=== PATIENT | female | born 1990 | race Hispanic/Latino ===

== ENCOUNTER 2017-05-08 13:02 | Emergency (ER) | payer OTHER ==
[2017-05-08 13:15] VITALS: RESP 16
[2017-05-08] MEDS ORDERED: Rabies Immune Globulin 150 INTLU/ML VIAL IM ONE (13:26)
[2017-05-08] MEDS ORDERED: RABIES VACCINE 2.5 U PDR IM ONE (13:26)
--- NOTE | 2017-05-08 13:49 | C.PDOC ---
History Of Present Illness 26 y/o F presents with exposure to bat. Patient has been having URI like symptoms for 1 week. At the onset, she states she was sleeping and knows that a bat had touched her but denies any obvious bite or scratch. She saw a PMD in office who instructed her to come to ER for rabies treatment. Denies fever, joint pain, confusion. Time Seen by Provider: 05/08/17 13:12 Chief Complaint (Nursing): Rabies Vaccine Series Past Medical History Vital Signs: Last Vital Signs Temp 98.5 F 05/08/17 13:09 Pulse 78 05/08/17 13:09 Resp 16 05/08/17 13:09 BP 129/84 05/08/17 13:09 Pulse Ox 98 05/08/17 13:49 Family History: States: No Known Family Hx - Social History Hx Alcohol Use: Yes Hx Substance Use: No - Immunization History Hx Tetanus Toxoid Vaccination: Yes Hx Influenza Vaccination: No Hx Pneumococcal Vaccination: No Review Of Systems Except As Marked, All Systems Reviewed And Found Negative. Constitutional: Negative for: Fever Cardiovascular: Negative for: Chest Pain Physical Exam - Physical Exam Additional Physical Exam Comments: Constitutional: No acute distress. Head: Normocephalic. Atraumatic. Eyes: PERRL. ENT: Moist mucous membranes. Neck: Supple. Cardiovascular: Regular rate. Radial pulses 2+ bilaterally. Chest: No tenderness. Respiratory: Clear to auscultation bilaterally. GI: Soft. Nontender. Nondistended. Back: No CVA tenderness. Musculoskeletal: No tenderness or swelling of extremities. Skin: No rash. Neurologic: Alert, no focal deficit. ED Course And Treatment O2 Sat by Pulse Oximetry: 98 Medical Decision Making Medical Decision Making: Rabies IG and vaccine administered. Disposition - Disposition Disposition: HOME/ ROUTINE Disposition Time: 14:12 Condition: STABLE Additional Instructions: Return to the ER for your 2nd, 3rd, and 4th shots. 05/11: Shot 2 05/15: Shot 3 05/22: Shot 4 Instructions: Rabies (ED) Forms: [facility] (Qatari) - Clinical Impression Clinical Impression: Rabies vaccination, Exposure to bat without known bite - Scribe Statement The provider has reviewed the documentation as recorded by the Scribe Mirtha Arellano All medical record entries made by the Scribe were at my direction and personally dictated by me. I have reviewed the chart and agree that the record accurately reflects my personal performance of the history, physical exam, medical decision making, and the department course for this patient. I have also personally directed, reviewed, and agree with the discharge instructions and disposition.
[2017-05-08 15:56] VITALS: BP 130/78; PULSE 82; TEMP 98.4; O2SAT 99
== END 2017-05-08 15:00 | disposition home or self-care (01) ==
LOC: C.ER 13:02
DX: Z29.14 Encounter for prophylactic rabies immune globulin (principal)

== ENCOUNTER 2017-05-12 10:31 | Emergency (ER) | payer BC ==
[2017-05-12 10:59] VITALS: BP 110/66; PULSE 68; RESP 16; TEMP 97.9; O2SAT 100
[2017-05-12] MEDS ORDERED: RABIES VACCINE 2.5 U PDR IM ONE (11:11)
--- NOTE | 2017-05-12 11:12 | C.PDOC ---
History Of Present Illness 26 y/o F presents with exposure to bat. Pt was sleeping and felt bat had touch her. Denies any obvious bite or scratch. Pt was in ER four days ago for first rabies vaccine. Denies fever, joint pain, confusion. Pt has no complaints and feels well. Time Seen by Provider: 05/12/17 11:07 Chief Complaint (Nursing): Rabies Vaccine Series History Per: Patient History/Exam Limitations: no limitations Past Medical History Vital Signs: Last Vital Signs Temp 97.9 F 05/12/17 10:48 Pulse 68 05/12/17 10:48 Resp 16 05/12/17 10:48 BP 110/66 05/12/17 10:48 Pulse Ox 100 05/12/17 11:12 Family History: States: Unknown Family Hx - Social History Hx Alcohol Use: Yes Hx Substance Use: No - Immunization History Hx Tetanus Toxoid Vaccination: Yes Hx Influenza Vaccination: No Hx Pneumococcal Vaccination: No Review Of Systems Except As Marked, All Systems Reviewed And Found Negative. Physical Exam - Physical Exam Appears: Well, Non-toxic, No Acute Distress Skin: Normal Color, Warm, Dry Head: Atraumatic, Normacephalic Eye(s): bilateral: Normal Inspection, EOMI Nose: Normal Neck: Normal, Normal ROM, Supple Chest: Symmetrical Cardiovascular: Rhythm Regular Respiratory: Normal Breath Sounds, No Accessory Muscle Use Extremity: Normal ROM Extremity: Bilateral: Atraumatic Neurological/Psych: Oriented x3, Normal Speech ED Course And Treatment O2 Sat by Pulse Oximetry: 100 Progress Note: RAbies vaccined ordered and given. Disposition - Disposition Disposition: HOME/ ROUTINE Disposition Time: 11:11 Condition: STABLE Additional Instructions: Return to the ER for your 3rd, and 4th shots. 05/15: Shot 3 05/22: Shot 4 Instructions: Rabies Vaccine (ED) Forms: [facility] (Saudi Arabian) - Clinical Impression Clinical Impression: Rabies vaccination, Exposure to bat without known bite
== END 2017-05-12 11:49 | disposition home or self-care (01) ==
LOC: C.ER 10:31
DX: Z23 Encounter for immunization (principal)

== ENCOUNTER 2017-05-15 10:12 | Emergency (ER) | payer BC ==
[2017-05-15 10:24] VITALS: BP 114/58; PULSE 52; RESP 20; TEMP 98.4; O2SAT 100
[2017-05-15] MEDS ORDERED: RABIES VACCINE 2.5 U PDR IM ONE (10:40)
--- NOTE | 2017-05-15 10:51 | C.PDOC ---
History Of Present Illness 26 yr old female presents to the ER for her 3rd rabies shot. Patient had a possible exposure to a bat. Patient denies muscle aches, fever, chest pain, SOB or rash. Denies issues with previous dosages. Time Seen by Provider: 05/15/17 10:33 Chief Complaint (Nursing): Rabies Vaccine Series History Per: Patient History/Exam Limitations: no limitations Onset/Duration Of Symptoms: Days Past Medical History Reviewed: Historical Data, Nursing Documentation, Vital Signs Vital Signs: Last Vital Signs Temp 98.4 F 05/15/17 10:23 Pulse 52 L 05/15/17 10:23 Resp 20 05/15/17 10:23 BP 114/58 L 05/15/17 10:23 Pulse Ox 100 05/15/17 10:52 Family History: States: No Known Family Hx - Social History Hx Alcohol Use: Yes Hx Substance Use: No - Immunization History Hx Tetanus Toxoid Vaccination: Yes Hx Influenza Vaccination: No Hx Pneumococcal Vaccination: No Review Of Systems Except As Marked, All Systems Reviewed And Found Negative. Constitutional: Negative for: Fever Cardiovascular: Negative for: Chest Pain Respiratory: Negative for: Shortness of Breath Skin: Negative for: Rash Physical Exam - Physical Exam Appears: Well, Non-toxic, No Acute Distress Skin: Warm, Dry, No Rash Head: Atraumatic, Normacephalic Eye(s): bilateral: Normal Inspection, PERRL, EOMI Oral Mucosa: Moist Chest: Symmetrical, No Tenderness Cardiovascular: Rhythm Regular, No Murmur Respiratory: Normal Breath Sounds, No Rales, No Rhonchi, No Stridor, No Wheezing Extremity: Normal ROM, No Swelling Neurological/Psych: Oriented x3, Normal Speech ED Course And Treatment O2 Sat by Pulse Oximetry: 100 (RA ) Pulse Ox Interpretation: Normal Medical Decision Making Medical Decision Making: PLAN: * Rabies Vaccine IM Disposition - Disposition Disposition: HOME/ ROUTINE Disposition Time: 10:40 Condition: GOOD Additional Instructions: Thank you for letting us take care of you today. Your provider was Dr. Starks. You were treated for a rabies vaccine. The emergency medical care you received today was directed at your acute symptoms. If you were prescribed any medication, please fill it and take as directed. It may take several days for your symptoms to resolve. Return to the Emergency Department if your symptoms worsen, do not improve, or if you have any other problems. Please contact your doctor or call one of the physicians/clinics you have been referred to that are listed on the Patient Visit Information form that is included in your discharge packet. Bring any paperwork you were given at discharge with you along with any medications you are taking to your follow up visit. Our treatment cannot replace ongoing medical care by a primary care provider (PCP) outside of the emergency department. Thank you for allowing the [facility] team to be part of your care today. Follow up with the ED in 1 week for your final vaccine. Instructions: Rabies Vaccine (ED) - Clinical Impression Clinical Impression: Rabies vaccination - Scribe Statement The provider has reviewed the documentation as recorded by the Addy Duncan Provider Attestation: All medical record entries made by the Addy were at my direction and personally dictated by me. I have reviewed the chart and agree that the record accurately reflects my personal performance of the history, physical exam, medical decision making, and the department course for this patient. I have also personally directed, reviewed, and agree with the discharge instructions and disposition.
== END 2017-05-15 11:10 | disposition home or self-care (01) ==
LOC: C.ER 10:12
DX: Z23 Encounter for immunization (principal)

== ENCOUNTER 2017-05-22 10:29 | Emergency (ER) | payer BC ==
[2017-05-22 10:34] VITALS: BP 116/63; PULSE 65; RESP 18; TEMP 98.6; O2SAT 98; BMI 28.2
[2017-05-22] MEDS ORDERED: RABIES VACCINE 2.5 U PDR IM ONE (10:51)
--- NOTE | 2017-05-22 11:04 | C.PDOC ---
History Of Present Illness 26 yr old female presents to the ER for her last rabies shot. patient denies fever, chills, chest pain, SOB, nausea, vomiting, headache, weakness or numbness. Time Seen by Provider: 05/22/17 10:37 Chief Complaint (Nursing): Medical Clearance History Per: Patient History/Exam Limitations: no limitations Past Medical History Reviewed: Historical Data, Nursing Documentation, Vital Signs Vital Signs: Last Vital Signs Temp 98.6 F 05/22/17 10:34 Pulse 65 05/22/17 10:34 Resp 18 05/22/17 10:34 BP 116/63 05/22/17 10:34 Pulse Ox 98 05/22/17 11:04 Family History: States: No Known Family Hx - Social History Hx Alcohol Use: Yes Hx Substance Use: No - Immunization History Hx Tetanus Toxoid Vaccination: Yes Hx Influenza Vaccination: No Hx Pneumococcal Vaccination: No Review Of Systems Except As Marked, All Systems Reviewed And Found Negative. Constitutional: Negative for: Fever, Chills Cardiovascular: Negative for: Chest Pain Respiratory: Negative for: Shortness of Breath Gastrointestinal: Negative for: Nausea, Vomiting Neurological: Negative for: Weakness, Numbness, Headache Physical Exam - Physical Exam Appears: Non-toxic, No Acute Distress Skin: Warm, Dry, No Rash Head: Atraumatic, Normacephalic Neurological/Psych: Oriented x3, Normal Speech, Normal Motor ED Course And Treatment O2 Sat by Pulse Oximetry: 98 (RA) Pulse Ox Interpretation: Normal Disposition - Disposition Disposition: HOME/ ROUTINE Disposition Time: 11:18 Condition: STABLE Additional Instructions: follow up with your doctor. return to er with worsening symptoms or concerns. Instructions: Rabies Vaccine (By injection) Forms: [email or web address] (Burundian) - Clinical Impression Clinical Impression: Rabies vaccination - Scribe Statement The provider has reviewed the documentation as recorded by the Addy Duncan Provider Attestation: All medical record entries made by the Frantziballyssa were at my direction and personally dictated by me. I have reviewed the chart and agree that the record accurately reflects my personal performance of the history, physical exam, medical decision making, and the department course for this patient. I have also personally directed, reviewed, and agree with the discharge instructions and disposition.
== END 2017-05-22 11:44 | disposition home or self-care (01) ==
LOC: C.ER 10:29
DX: Z23 Encounter for immunization (principal)

== ENCOUNTER 2017-11-02 15:59 | Emergency (ER) | payer BC ==
[2017-11-02 15:59] VITALS: BMI 28.2
[2017-11-02 17:16] VITALS: RESP 20; TEMP 98.7
--- NOTE | 2017-11-02 19:21 | C.PDOC ---
History Of Present Illness Patient presents to the ER with a complaint of a sharp stabbing left flank pain that began earlier today. Denies fever, chills, nausea, or vomiting. Time Seen by Provider: 11/02/17 19:20 Chief Complaint (Nursing): Abdominal Pain History Per: Patient History/Exam Limitations: no limitations Onset/Duration Of Symptoms: Hrs Current Symptoms Are (Timing): Still Present Severity: Moderate Pain Scale Rating Of: 6 Location Of Pain/Discomfort: Other (Left flank pain) Radiation Of Pain To:: None Quality Of Discomfort: Sharp, Stabbing Associated Symptoms: denies: Fever, Chills, Nausea, Vomiting Exacerbating Factors: None Alleviating Factors: None Recent travel outside of the [place]: No Abnormal Vaginal Bleeding: No Past Medical History Reviewed: Historical Data, Nursing Documentation, Vital Signs Vital Signs: Last Vital Signs Temp 98.7 F 11/02/17 17:12 Pulse 79 11/02/17 17:12 Resp 20 11/02/17 17:12 BP 108/73 11/02/17 17:12 Pulse Ox 98 11/02/17 19:34 Family History: States: Unknown Family Hx - Social History Hx Alcohol Use: Yes Hx Substance Use: No - Immunization History Hx Tetanus Toxoid Vaccination: Yes Hx Influenza Vaccination: No Hx Pneumococcal Vaccination: No Review Of Systems Constitutional: Negative for: Fever, Chills Gastrointestinal: Negative for: Nausea, Vomiting Musculoskeletal: Positive for: Back Pain (Left flank) Physical Exam - Physical Exam Appears: Non-toxic Skin: Warm, Dry Head: Normacephalic Oral Mucosa: Moist Chest: Symmetrical, No Tenderness Cardiovascular: Rhythm Regular Respiratory: No Rales, No Rhonchi, No Wheezing Gastrointestinal/Abdominal: Soft, No Tenderness Back: Other (Left flank tenderness. No guarding or rebound.) Neurological/Psych: Oriented x3 ED Course And Treatment - Laboratory Results Result Diagrams: 11/02/17 20:10 11/02/17 20:10 O2 Sat by Pulse Oximetry: 98 (room air) Pulse Ox Interpretation: Normal Progress Note: Blood work and urinalysis ordered. IV fluids administered. Reevaluation Time: 22:19 Reassessment Condition: Improved Disposition Counseled Patient/Family Regarding: Studies Performed, Diagnosis, Need For Followup - Disposition Disposition: HOME/ ROUTINE Disposition Time: 19:21 Condition: FAIR Additional Instructions: Please follow up with your doctor re: the anemia Instructions: Abdominal Pain (ED), Ovarian Cyst (ED) Forms: [employer] (Mongolian) - Clinical Impression Clinical Impression: Abdominal pain, Anemia, Ovarian cyst - Scribe Statement The provider has reviewed the documentation as recorded by the Scriballyssa Grey All medical record entries made by the Scribe were at my direction and personally dictated by me. I have reviewed the chart and agree that the record accurately reflects my personal performance of the history, physical exam, medical decision making, and the department course for this patient. I have also personally directed, reviewed, and agree with the discharge instructions and disposition.
[2017-11-02] MEDS ORDERED: Sodium Chloride 0.9% 1,000 ML IV ONE (19:28)
[2017-11-02 19:59] LABS: HCG,QUALITATIVE URINE NEGATIVE (NEGATIVE)
[2017-11-02 20:02] LABS: SQUAMOUS EPITHIAL 1 /hpf (0-5); URINE BACTERIA MANY (<OCC); URINE BILIRUBIN NEGATIVE (NEGATIVE); URINE BLOOD 1+ (NEGATIVE); URINE CLARITY Clear (Clear); URINE COLOR Straw (YELLOW); URINE GLUCOSE (UA) NORMAL (Normal); URINE LEUKOCYTE ESTERASE NEG Leu/uL (Negative); URINE NITRATE NEGATIVE (NEGATIVE); URINE PROTEIN NEGATIVE (NEGATIVE); URINE UROBILINOGEN NORMAL mg/dL (0.2-1.0)
[2017-11-02 20:14] LABS: BASO # 0.1 K/uL (0.0-0.2); BASO % 1.1 % (0.0-2.0); EOS # 0.1 K/uL (0.0-0.7); EOS % 1.6 % (0.0-4.0); HEMOGLOBIN 7.1 g/dL (11.0-16.0); LYMPH # 2.1 K/uL (1.0-4.3); LYMPH % 29.4 % (20.0-40.0); MEAN CELL VOLUME 68.7 fL (81.0-99.0); MEAN CORPUSCULAR HEMOGLOBIN 20.3 pg (27.0-31.0); MEAN CORPUSCULAR HGB CONC 29.5 g/dL (33.0-37.0); MEAN PLATELET VOLUME 9.9 fL (7.2-11.7); MONO # 0.6 K/uL (0.0-0.8); MONO % 8.6 % (0.0-10.0); NEUT # 4.2 K/uL (1.8-7.0); NEUT % 59.3 % (50.0-75.0); NRBC % 0.1 % (0.0-2.0); RBC 3.51 Mil/uL (3.80-5.20); RED CELL DISTRIBUTION WIDTH 18.1 % (11.5-14.5); WHITE BLOOD COUNT 7.2 K/uL (4.8-10.8)
[2017-11-02 20:29] LABS: ALB/GLOB RATIO 1.2 (1.0-2.1); ALT/SGPT 26 U/L (9-52); AST/SGOT 29 U/L (14-36); BLOOD UREA NITROGEN 7 mg/dL (7-17); GFR AFRICAN-AMERICAN > 60; GFR NON-AFRICAN AMERICAN > 60
--- NOTE | 2017-11-02 22:07 | CT ---
EXAM: CT Abdomen and Pelvis Without Intravenous Contrast CLINICAL HISTORY: 26 years old, female; Pain; Abdominal pain; Flank; Left lower quadrant (llq); Additional info: Left flank pain, hematuria TECHNIQUE: Axial computed tomography images of the abdomen and pelvis without intravenous contrast. All CT scans at this facility use one or more dose reduction techniques, viz.: automated exposure control; ma/kV adjustment per patient size (including targeted exams where dose is matched to indication; i.e. head); or iterative reconstruction technique. Coronal and sagittal reformatted images were created and reviewed. COMPARISON: No relevant prior studies available. FINDINGS: Lower thorax: No acute findings. ABDOMEN: Liver: Unremarkable. Gallbladder and bile ducts: No calcified stones. No ductal dilation. Pancreas: Unremarkable. No ductal dilation. Spleen: No splenomegaly. Adrenals: No mass. Kidneys and ureters: No renal calculi. No hydronephrosis. Stomach and bowel: No definite mural thickening. No obstruction. Appendix: Normal caliber. No inflammation. PELVIS: Bladder: Unremarkable. No stones. Reproductive: 4.4 x 4.0 x 4.0 cm hypodense lesion within LEFT ovary. ABDOMEN and PELVIS: Intraperitoneal space: No significant fluid collection. No free air. Bones/joints: No acute fracture. Soft tissues: Tiny umbilical hernia containing fat. Vasculature: Unremarkable. No aneurysm. Lymph nodes: No pathologically enlarged lymph nodes. IMPRESSION: 1. No definite CT evidence of urolithiasis. 2. Probable LEFT ovarian cyst. Consider ultrasound. 3. Incidental/non-acute findings are described above.
[2017-11-02 22:46] VITALS: BP 116/63; PULSE 77; O2SAT 99
[2017-11-02 23:02] LABS: IRON 15 ug/dL (37-170)
[2017-11-02 23:11] LABS: % IRON SATURATION 3 (20-55); TOTAL IRON BINDING CAPACITY 551 ug/dL (250-450)
== END 2017-11-02 22:45 | disposition home or self-care (01) ==
LOC: C.ER 15:59
DX: N83.209 Unspecified ovarian cyst, unspecified side (principal); D64.9 Anemia, unspecified; R10.9 Unspecified abdominal pain

== ENCOUNTER 2018-09-23 07:39 | Emergency (ER) | payer BC ==
[2018-09-23 07:39] VITALS: BMI 28.2
--- NOTE | 2018-09-23 08:13 | C.PDOC ---
History Of Present Illness Patient is a 27 year old female with a PMHx of UTI's, who presents to the ED for evaluation of sudden severe abdominal pain and lower left back pain since waking up this morning. Patient describes the pain as intermittent, sharp, and rates it as a 9 out of 10. Patient states that she has a subjective fever, nausea, and is currently on her menses. She denies any vomiting, diarrhea, abnormal bowel movements, vaginal discharge, dysuria, or a PMHx of kidney stones. Patient states that she feels better while urinating, but the pain worsens as she lays down. She has not taken any medication to alleviate her pain. Time Seen by Provider: 09/23/18 07:42 Chief Complaint (Nursing): Abdominal Pain History Per: Patient History/Exam Limitations: no limitations Onset/Duration Of Symptoms: Hrs Current Symptoms Are (Timing): Still Present Pain Scale Rating Of: 9 Location Of Pain/Discomfort: Diffuse, Other (left lower back) Radiation Of Pain To:: None Quality Of Discomfort: Sharp Associated Symptoms: Fever (subjective), Nausea. denies: Vomiting, Diarrhea, Constipation, Urinary Symptoms Exacerbating Factors: Supine Alleviating Factors: Other (urination ) Last Bowel Movement: Yesterday Recent travel outside of the [place]: No Additional History Per: Patient Abnormal Vaginal Bleeding: No Past Medical History Reviewed: Historical Data, Nursing Documentation, Vital Signs Vital Signs: Last Vital Signs Temp 97.9 F 09/23/18 07:44 Pulse 78 09/23/18 07:44 Resp 18 09/23/18 07:44 BP 112/68 09/23/18 07:44 Pulse Ox 99 09/23/18 07:44 - Medical History PMH: No Chronic Diseases Surgical History: No Surg Hx Family History: States: Unknown Family Hx - Social History Hx Alcohol Use: Yes Hx Substance Use: No - Immunization History Hx Tetanus Toxoid Vaccination: Yes Hx Influenza Vaccination: No Hx Pneumococcal Vaccination: No Review Of Systems Constitutional: Positive for: Fever (subjective) Cardiovascular: Negative for: Chest Pain Respiratory: Negative for: Shortness of Breath Gastrointestinal: Positive for: Nausea, Abdominal Pain. Negative for: Vomiting, Diarrhea, Constipation Genitourinary: Negative for: Dysuria, Vaginal Discharge Musculoskeletal: Positive for: Back Pain (lower left ) Physical Exam - Physical Exam Appears: Non-toxic, No Acute Distress Skin: Normal Color, Warm, Dry, No Rash Head: Atraumatic, Normacephalic Eye(s): bilateral: Normal Inspection, EOMI Oral Mucosa: Moist Neck: Normal ROM Chest: Symmetrical Cardiovascular: Rhythm Regular, No Murmur Respiratory: Normal Breath Sounds, No Rales, No Rhonchi, No Wheezing Gastrointestinal/Abdominal: Bowel Sounds (active), Soft, No Tenderness, No Guarding Back: Normal Inspection, No CVA Tenderness, No Vertebral Tenderness, No Paraspinal Tenderness Extremity: Bilateral: Atraumatic, Normal Color And Temperature, Normal ROM Neurological/Psych: Oriented x3, Normal Speech Gait: Steady ED Course And Treatment O2 Sat by Pulse Oximetry: 99 Medical Decision Making Medical Decision Making: Plan: * Urinalysis * Urine culture * Tylenol 650 mg 0845 UA shows UTI, blood and negative for Ordered Bactrim DS PO. Patient remained afebrile and in no distress. Vital signs stable. Explain results and the plan for discharge with rx. Patient feels comfortable going home Disposition Counseled Patient/Family Regarding: Need For Followup, Rx Given - Disposition Referrals: [facility] [Outside] Disposition: HOME/ ROUTINE Disposition Time: 08:48 Condition: STABLE Additional Instructions: Take antibiotic twice daily and be sure to finish taking all of antibiotic. Drink plenty of fluids. Follow up with your primary medical doctor or clinic in 2-5 days for further evaluation. Prescriptions: Sulfamethoxazole/Trimethoprim [Bactrim DS 800 mg-160 mg] 1 tab PO BID #10 tab Instructions: Urinary Tract Infections in Adults Forms: [facility] (Croatian) - POA Present On Arrival: None - Clinical Impression Clinical Impression: UTI (urinary tract infection) - PA / REGISTERED NURSE CARDIAC TELEMETRY / Resident Statement MD/DO has reviewed & agrees with the documentation as recorded. - Scribe Statement The provider has reviewed the documentation as recorded by the Addy Cornejo All medical record entries made by the Addy were at my direction and personally dictated by me. I have reviewed the chart and agree that the record accurately reflects my personal performance of the history, physical exam, medical decision making, and the department course for this patient. I have also personally directed, reviewed, and agree with the discharge instructions and disposition.
[2018-09-23 08:26] LABS: HCG,QUALITATIVE URINE NEGATIVE (NEGATIVE)
[2018-09-23 08:28] LABS: SQUAMOUS EPITHIAL 13 /hpf (0-5); URINE BACTERIA RARE (<OCC); URINE BILIRUBIN NEGATIVE (NEGATIVE); URINE BLOOD 3+ (NEGATIVE); URINE CLARITY Hazy (Clear); URINE COLOR Yellow (YELLOW); URINE GLUCOSE (UA) NORMAL (Normal); URINE LEUKOCYTE ESTERASE 1+ Leu/uL (Negative); URINE PROTEIN 1+ mg/dL (NEGATIVE); URINE UROBILINOGEN NORMAL mg/dL (0.2-1.0)
[2018-09-23] MEDS ORDERED: Tmp-Smz 800 mg-160 mg DS Tab PO STA (08:46)
[2018-09-23] MEDS ORDERED: Tmp-Smz 800 mg-160 mg DS Tab ONE (09:28)
[2018-09-23 12:34] VITALS: BP 112/73; PULSE 71; RESP 17; TEMP 98.6; O2SAT 99
== END 2018-09-23 09:30 | disposition home or self-care (01) ==
LOC: C.ER 07:39
DX: N39.0 Urinary tract infection, site not specified (principal)